=== PATIENT | female | born 1990 | race Caucasian/White ===

== ENCOUNTER 2017-11-07 18:31 | Emergency (ER) | payer OTHER, SELFPAY ==
[2017-11-07] MEDS ORDERED: Naproxen 500 MG TAB ONE (18:57)
[2017-11-07] MEDS ORDERED: Acetaminophen 500 MG TAB ONE (18:57)
[2017-11-07] MEDS ORDERED: Diazepam 5 MG TAB ONE (19:09)
== END 2017-11-07 21:01 | disposition home or self-care (01) ==
LOC: ERS 18:31
DX: M54.5 Low back pain (principal); F31.9 Bipolar disorder, unspecified; M51.36 Other intervertebral disc degeneration, lumbar region; Z79.1 Long term (current) use of non-steroidal anti-inflammatories (NSAID); X50.1XXA Overexertion from prolonged static or awkward postures, initial encounter
CPT/HCPCS: 99283

== ENCOUNTER 2021-04-09 22:04 | Emergency (ER) | payer MEDICAID ==
[2021-04-10] MEDS ORDERED: Acetaminophen 500 MG TAB ONE (00:41)
[2021-04-10] MEDS ORDERED: Ketorolac Tromethamine 30 MG/ML VIAL ONE (00:41)
== END 2021-04-10 02:00 | disposition home or self-care (01) ==
LOC: ERS 22:04
DX: M54.50 Low back pain, unspecified (principal); G89.29 Other chronic pain
CPT/HCPCS: 96372; 99283; J1885

== ENCOUNTER 2022-02-11 17:24 | Emergency (ER) | payer MEDICAID, SELFPAY ==
[2022-02-11] MEDS ORDERED: Acetaminophen 325 MG TAB ONE (21:02)
[2022-02-11] MEDS ORDERED: Dexamethasone 4 MG TAB ONE (21:02)
== END 2022-02-11 21:53 | disposition home or self-care (01) ==
LOC: ERS 17:24
DX: B34.9 Viral infection, unspecified (principal); J02.9 Acute pharyngitis, unspecified; Z20.822 Contact with and (suspected) exposure to COVID-19
CPT/HCPCS: 87081; 87430; 87804; 93005; J8540; U0003; U0005

== ENCOUNTER 2022-08-14 17:11 | Emergency (ER) | payer SELFPAY ==
[2022-08-14] MEDS ORDERED: Ketorolac Tromethamine 30 MG/ML VIAL ONE (18:52)
== END 2022-08-14 19:02 | disposition home or self-care (01) ==
LOC: ERS 17:11
DX: K04.7 Periapical abscess without sinus (principal)
CPT/HCPCS: 96372; 99282; J1885